=== PATIENT | male | born 1950 | race Caucasian/White ===

== ENCOUNTER 2018-01-27 19:05 | Emergency (ER) | payer MEDICARE, OTHER ==
--- NOTE | 2018-01-27 20:15 | ED Physician Documentation ---
PD HPI LOWER EXT INJURY - Stated complaint Stated Complaint: RT FOOT INJ - Chief complaint Chief Complaint: Ext Problem - History obtained from History obtained from: Patient - History of Present Illness PD HPI LOW EXT INJURY LOCATION: Right, Foot Type of injury: Fall (off a ladder and forcefully dorsiflexed foot and pain over top of foot. Able to walk/bear weight.) Review of Systems Constitutional: denies: Fever, Chills Ears: denies: Loss of hearing, Ear pain Nose: denies: Rhinorrhea / runny nose, Congestion Throat: denies: Sore throat PD PAST MEDICAL HISTORY - Past Medical History Past Medical History: Yes Cardiovascular: Hypertension - Past Surgical History Past Surgical History: Yes Ortho: Spine surgery - Present Medications Home Medications: Ambulatory Orders Medication Instructions Recorded Confirmed Aspirin [Aspirin EC] 01/27/18 Atorvastatin [Lipitor] 01/27/18 Hydrochlorothiazide 01/27/18 Losartan Potassium 01/27/18 Multivitamin [Multiple Vitamins] 01/27/18 Ranitidine HCl [Zantac] 01/27/18 - Allergies Allergies/Adverse Reactions: Allergies Allergy/AdvReac Type Severity Reaction Status Date / Time No Known Drug Allergies Allergy Verified 01/27/18 19:24 - Social History Does the pt smoke?: No Smoking Status: Never smoker Does the pt drink ETOH?: No Does the pt have substance abuse?: No - Immunizations Immunizations are current?: Yes PD ED PE NORMAL - Vitals Vital signs reviewed: Yes - General General: Alert and oriented X 3, No acute distress - Neck Neck: Supple, no meningeal sign, No bony TTP - Extremities Extremities: Other (Tender over the distal medial foot on the right, kind of over the distal first and second metatarsals and swollen there but good range of motion and no proximal or mid foot tenderness.) - Neuro Neuro: Alert and oriented X 3, Normal speech Results - Vitals Vitals: Vital Signs - 24 hr 01/27/18 01/27/18 19:19 20:35 Temperature 37.1 C Heart Rate 74 89 Respiratory 16 18 Rate Blood Pressure 139/84 H 141/87 H O2 Saturation 99 Oxygen O2 Source Room air - Rads (name of study) 3 views of the right foot Radiology: EMP read contemporaneously (Normal) PD MEDICAL DECISION MAKING - Sepsis Event Vital Signs: Vital Signs - 24 hr 01/27/18 01/27/18 19:19 20:35 Temperature 37.1 C Heart Rate 74 89 Respiratory 16 18 Rate Blood Pressure 139/84 H 141/87 H O2 Saturation 99 Oxygen O2 Source Room air Departure - Departure Disposition: 01 Home, Self Care Clinical Impression: Right foot sprain Qualifiers: Encounter type: initial encounter Qualified Code(s): S93.601A - Unspecified sprain of right foot, initial encounter Condition: Good Instructions: ED Sprain Foot Comments: Recheck with your doctor in 1 week if not better. Your blood pressure was elevated today on check into the emergency department. This does not mean that you have hypertension, it is a common phenomenon to come to the emergency department and have elevated blood pressure. I recommend that you see your primary care physician within the week to have it rechecked when you are feeling better. Discharge Date/Time: 01/27/18 21:06
[2018-01-27 20:36] VITALS: BP 141/87
--- NOTE | 2018-01-29 23:03 | XRAY Report ---
Procedure Date: 01/27/2018 Accession Number: [id number] / [id number] Procedure: XR - Foot 3 View RT CPT Code: FULL RESULT: EXAM: RIGHT FOOT RADIOGRAPHY EXAM DATE: 01/27/2018 07:54 PM. CLINICAL HISTORY: Injury to RLE. COMPARISON: None. TECHNIQUE: 3 views. FINDINGS: Bones: Normal. No fractures or bone lesions. Joints: Mild first MTP hallux valgus and degenerative changes. No subluxations. Soft Tissues: Normal. No soft tissue swelling. IMPRESSION: No evidence of right foot fracture or dislocation. RADIA
== END 2018-01-27 21:06 | disposition home or self-care (01) ==
LOC: ED 19:05
DX: S93.601A Unspecified sprain of right foot, initial encounter (principal); W11.XXXA Fall on and from ladder, initial encounter; X50.1XXA Overexertion from prolonged static or awkward postures, initial encounter; Y93.9 Activity, unspecified; I10 Essential (primary) hypertension; Z79.82 Long term (current) use of aspirin
CPT/HCPCS: 99282; 99283

== ENCOUNTER 2019-02-25 20:09 | Emergency (ER) | payer MEDICARE, OTHER ==
[2019-02-25 20:21] VITALS: BP 141/88
[2019-02-25] MEDS ORDERED: predniSONE 20 MG TABLET PO STA (21:40)
--- NOTE | 2019-02-25 21:43 | ED Physician Documentation ---
History of Present Illness - Stated complaint Stated Complaint: RT HAND BEE STING - Chief complaint Chief Complaint: Ext Problem - History obtained from History obtained from: Patient - History of Present Illness Timing: How many hours ago (3) Pain level max: 2 Pain level now: 2 Improved by: nothing Worsened by: nothing - Additonal information Additional information: Patient with a bee sting to the right hand. Took a Claritin when it started to swell. The swelling has increased since that time. No airway involvement. No difficulty breathing. No facial swelling. Review of Systems Constitutional: denies: Fever, Chills Respiratory: denies: Dyspnea, Cough, Wheezing GI: denies: Nausea, Vomiting : denies: Dysuria PD PAST MEDICAL HISTORY - Past Medical History Past Medical History: Yes Cardiovascular: Hypertension Respiratory: None Neuro: None Endocrine/Autoimmune: None GI: None : None HEENT: None Psych: None Musculoskeletal: None Derm: None - Past Surgical History Past Surgical History: Yes General: Colonoscopy, Other Ortho: Spine surgery - Present Medications Home Medications: Ambulatory Orders Medication Instructions Recorded Confirmed Aspirin [Aspirin EC] 01/27/18 Atorvastatin [Lipitor] 01/27/18 Hydrochlorothiazide 01/27/18 Losartan Potassium 01/27/18 Multivitamin [Multiple Vitamins] 01/27/18 Ranitidine HCl [Zantac] 01/27/18 EPINEPHrine [Epinephrine] 0.3 mg IJ ONCE PRN #1 auto.injct 02/25/19 - Allergies Allergies/Adverse Reactions: Allergies Allergy/AdvReac Type Severity Reaction Status Date / Time No Known Drug Allergies Allergy Verified 02/25/19 20:21 - Social History Does the pt smoke?: No Smoking Status: Never smoker Does the pt drink ETOH?: No Does the pt have substance abuse?: No - Immunizations Immunizations are current?: Yes - POLST Patient has POLST: No PD ED PE NORMAL - Vitals Vital signs reviewed: Yes - General General: Alert and oriented X 3, No acute distress - Derm Derm: Warm and dry - Extremities Extremities: Other (Right hand - Swelling to the dorsum of the hand. Mild erythema. No palmar tenderness. Neurovascularly intact.) - Neuro Neuro: Alert and oriented X 3 - Psych Psych: Normal mood, Normal affect Results - Vitals Vitals: Vital Signs - 24 hr 02/25/19 20:19 Temperature 36.7 C Heart Rate 72 Respiratory 19 Rate Blood Pressure 141/88 H O2 Saturation 99 Oxygen O2 Source Room air PD MEDICAL DECISION MAKING - ED course Complexity details: considered differential, d/w patient ED course: Patient with a localized allergic reaction to a bee sting. Took Claritin prior to arrival. Given prednisone here. Will prescribe an epinephrine pen for him in case the next reaction is worse. No evidence of anaphylaxis. No stridor. No wheezing. Patient and family counseled regarding signs and symptoms for which I believe and urgent re-evaluation would be necessary. Patient with good understanding of and agreement to plan and is comfortable going home at this time This document was made in part using voice recognition software. While efforts are made to proofread this document, sound alike and grammatical errors may occur. Departure - Departure Disposition: 01 Home, Self Care Clinical Impression: Bee sting reaction Qualifiers: Encounter type: initial encounter Injury intent: accidental or unintentional Qualified Code(s): T63.441A - Toxic effect of venom of bees, accidental (unintentional), initial encounter Condition: Good Instructions: ED Bite Sting Insect Gen Allergic React Follow-Up: Leo Hawthorne MD [Primary Care Provider] - As Needed Prescriptions: EPINEPHrine [Epinephrine] 0.3 mg IJ ONCE PRN #1 auto.injct PRN Reason: Anaphylaxis Comments: He can use Benadryl at home as well. Return if you worsen. Follow-up with your doctor for further care. If you are stung again and starts to have difficulty breathing or failure throat swelling, you can use the epinephrine pen. You can take Benadryl at the same time. You should then be seen immediately in the emergency department. Discharge Date/Time: 02/25/19 21:49
== END 2019-02-25 21:49 | disposition home or self-care (01) ==
LOC: ED 20:09
DX: T63.441A Toxic effect of venom of bees, accidental (unintentional), initial encounter (principal); M79.89 Other specified soft tissue disorders; I10 Essential (primary) hypertension
CPT/HCPCS: 99282; 99284; J7512

== ENCOUNTER 2022-10-28 04:36 | Outpatient (CLI) | payer MEDICARE, OTHER | END 2022-10-28 23:59 | disposition critical access hospital (66) | LOC: EMS 04:36 | DX: R07.89 Other chest pain (principal); R55 Syncope and collapse; R42 Dizziness and giddiness | CPT/HCPCS: A0425; A0427 ==

== ENCOUNTER 2022-10-28 05:09 | Emergency (ER) | payer MEDICARE, OTHER ==
--- NOTE | 2022-10-28 05:21 | ED Physician Documentation ---
PD HPI CHEST PAIN - Stated complaint Stated Complaint: CP/SYNCOPE - History obtained from History obtained from: Patient, Family () - Additional information Additional information: 72-year-old man with past medical history of high blood pressure and family history of heart attack presents with intermittent mild left-sided chest pain, most recently at 3:30 AM with associated 2 out of 10 aching.Patient states that he often has difficulty sleeping and was unable to sleep this past evening. He went to the bathroom around 3:30 AM and was planning to take 2 baby aspirin for his chest pain when he suddenly woke up on the ground with his standing over him. They believe that he had fainted. Note the patient had been feeling normally yesterday. He did have a stress echo in [place] 4 or 5 years ago that uncovered no major cardiac disease. PD PAST MEDICAL HISTORY - Past Medical History Cardiovascular: Hypertension Respiratory: None Neuro: None Endocrine/Autoimmune: None GI: None : None HEENT: None Psych: None Musculoskeletal: None Derm: None - Past Surgical History Past Surgical History: Yes General: Colonoscopy, Other Ortho: Spine surgery - Present Medications Home Medications: Ambulatory Orders Medication Instructions Recorded Confirmed Aspirin [Aspirin EC] 81 mg PO DAILY 01/27/18 10/28/22 Atorvastatin [Lipitor] 20 mg PO QPM 01/27/18 10/28/22 Losartan Potassium 50 mg PO DAILY 01/27/18 10/28/22 hydroCHLOROthiazide 12.5 mg PO 1-2XD 01/27/18 10/28/22 [Hydrochlorothiazide] Colestipol HCl [Colestid] 1 gm PO 10/28/22 Omeprazole Magnesium 20 mg PO 10/28/22 - Allergies Allergies/Adverse Reactions: Allergies Allergy/AdvReac Type Severity Reaction Status Date / Time ofloxacin [From Floxin] Allergy Unknown Verified 10/28/22 06:08 ciprofloxacin [From Cipro] AdvReac Unknown Verified 10/28/22 06:07 Quinolones AdvReac Unknown Verified 10/28/22 06:06 antihistamines Allergy Unknown Uncoded 10/28/22 06:09 - Social History Does the pt smoke?: No Smoking Status: Never smoker Does the pt drink ETOH?: No Does the pt have substance abuse?: No - Immunizations Immunizations are current?: Yes - POLST Patient has POLST: No PD ED PE NORMAL - Vitals Vital signs reviewed: Yes - General General: Alert and oriented X 3, No acute distress, Well developed/nourished - HEENT HEENT: Atraumatic, PERRL, EOMI - Neck Neck: Supple, no meningeal sign - Cardiac Cardiac: RRR - Respiratory Respiratory: No respiratory distress, Clear bilaterally - Abdomen Abdomen: Non tender, Non distended Results - Vitals Vitals: Vital Signs - 24 hr 10/28/22 10/28/22 10/28/22 05:21 05:31 05:47 Temperature 36.2 C L Heart Rate 56 L 67 57 L Respiratory 16 30 H 12 Rate Blood Pressure 124/74 124/74 119/68 O2 Saturation 99 100 100 10/28/22 06:08 Temperature Heart Rate 70 Respiratory 18 Rate Blood Pressure 111/79 O2 Saturation 99 Oxygen O2 Source Room air - EKG (time done) 0521 EKG releavant findings:: EKG personally interpreted by author of this note. Relevant findings are: Rate: Rate (enter#) (60) Rhythm: NSR [place]: Normal Intervals: Normal TN QRS: Normal Ischemia: Normal ST segments - Labs Labs: Laboratory Tests 10/28/22 10/28/22 10/28/22 05:30 05:30 05:30 WBC 5.5 RBC 4.49 L Hgb 13.2 L Hct 39.9 L MCV 88.9 MCH 29.4 MCHC 33.1 RDW 14.0 Plt Count 195 MPV 9.6 Neut # (Auto) 3.3 Lymph # (Auto) 1.6 Dawson # (Auto) 0.5 Eos # (Auto) 0.1 Baso # (Auto) 0.0 Absolute Nucleated RBC 0.00 Nucleated RBC % 0.0 Sodium 142 Potassium 3.7 Chloride 108 Carbon Dioxide 28 Anion Gap 6.0 BUN 20 Creatinine 0.9 Estimated GFR (MDRD) 83 L Glucose 113 H Calcium 8.6 Total Bilirubin 0.4 AST 23 ALT 30 Alkaline Phosphatase 60 Troponin I High Sens 4.5 Total Protein 6.7 Albumin 3.9 Globulin 2.8 Albumin/Globulin Ratio 1.4 Lipase 37 10/28/22 06:29 WBC RBC Hgb Hct MCV MCH MCHC RDW Plt Count MPV Neut # (Auto) Lymph # (Auto) Dawson # (Auto) Eos # (Auto) Baso # (Auto) Absolute Nucleated RBC Nucleated RBC % Sodium Potassium Chloride Carbon Dioxide Anion Gap BUN Creatinine Estimated GFR (MDRD) Glucose Calcium Total Bilirubin AST ALT Alkaline Phosphatase Troponin I High Sens 4.8 Total Protein Albumin Globulin Albumin/Globulin Ratio Lipase PD Medical Decision Making - ED course ED course: 72-year-old man presents with intermittent chest pain throughout the night waking him from sleep in the early hours of this morning. Patient stood up to Get from bed and had a syncopal episode at which time his called 911. EMS reports they administered 400 mL of normal saline and gave no other medications on route. Patient took 2 baby aspirin prior to arrival.Chest pain is now resolved. asymptomatic on arrival to ED. Well-appearing with benign vitals and exam on initial arrival. Plan to obtain CBC, abdominal panel, troponin, EKG, chest x-ray. We will reevaluate pending results. labwork noncontributory. EKG NSR. CXR independently interpreted by myself and outside radiologist to have no evidence of cardiopulmonary disease. Plan to dc and have him follow up with outpatient cardiology in [place]. Return precautions given. Departure - Departure Disposition: 01 Home, Self Care Clinical Impression: Chest pain, Syncope Condition: Stable Instructions: ED Fainting Unkn Cause Comments: You were seen in the ED for a fainting episode and for chest pain. Your labwork uncovered no emergent cause for your symptoms. Please follow up with your marketing project lead this week. Return to the ED for new or worsening symptoms or if you have other concerns.
[2022-10-28 05:58] LABS: ALBUMIN 3.9 g/dL (3.2-5.5); ALBUMIN/GLOBULIN RATIO 1.4 (1.0-2.2); BASOPHILS % (AUTO) 0.5 %; BILIRUBIN,TOTAL 0.4 mg/dL (0.2-1.0); CALCIUM 8.6 mg/dL (8.5-10.3); CREATININE 0.9 mg/dL (0.6-1.2); EOSINOPHILS # (AUTO) 0.1 10^3/uL (0.0-0.7); EOSINOPHILS % (AUTO) 1.3 %; HCT - HEMATOCRIT 39.9 % (42.0-52.0); HGB - HEMOGLOBIN 13.2 g/dL (14.0-18.0); LYMPHOCYTES # (AUTO) 1.6 10^3/uL (1.5-3.5); LYMPHOCYTES % (AUTO) 28.7 %; MEAN CORPUSCULAR HEMOGLOBIN 29.4 pg (27.0-31.0); MEAN CORPUSCULAR HGB CONC 33.1 g/dL (32.0-36.0); MEAN CORPUSCULAR VOLUME 88.9 fL (80.0-94.0); MEAN PLATELET VOLUME 9.6 fL (7.4-11.4); MONOCYTES # (AUTO) 0.5 10^3/uL (0.0-1.0); MONOCYTES % (AUTO) 8.5 %; NEUTROPHILS # (AUTO) 3.3 10^3/uL (1.5-6.6); NEUTROPHILS % (AUTO) 60.8 %; PLT - PLATELET COUNT 195 10^3/uL (130-450); POTASSIUM 3.7 mmol/L (3.5-5.0); RED BLOOD COUNT 4.49 10^6/uL (4.70-6.10); TOTAL PROTEIN 6.7 g/dL (6.7-8.2); WHITE BLOOD COUNT 5.5 x10^3/uL (4.8-10.8)
[2022-10-28 07:18] VITALS: BP 111/78
--- NOTE | 2022-10-28 07:59 | XRAY Report ---
PROCEDURE: Chest 1 View X-Ray INDICATIONS: Chest Pain TECHNIQUE: One view of the chest was acquired. COMPARISON: None. FINDINGS: Surgical changes and devices: None. Lungs and pleura: No pleural effusions or pneumothorax. Lungs are clear. Mediastinum: Mediastinal contours appear normal. Heart size is normal. Bones and chest wall: No suspicious bony lesions. Overlying soft tissues appear unremarkable. IMPRESSION: No evidence acute pulmonary process. Findings are concordant with preliminary interpretation provided by [facility]. Reviewed by: Higinio Westfall MD on 10/28/2022 7:58 AM PDT Approved by: Higinio Westfall MD on 10/28/2022 7:58 AM PDT Station ID: [id number]
== END 2022-10-28 07:28 | disposition home or self-care (01) ==
LOC: EDUNIT# → ED 05:09
DX: R55 Syncope and collapse (principal); R07.9 Chest pain, unspecified; I10 Essential (primary) hypertension
CPT/HCPCS: 36415; 80053; 83690; 84484; 85025; 93005; 99284